=== PATIENT | male | born 1975 | race African-American/Black ===

== ENCOUNTER 2016-09-05 07:00 | Emergency (ER) | payer OTHER | END 2016-09-05 07:18 | disposition home or self-care (01) | LOC: CED 07:00 | DX: M77.11 Lateral epicondylitis, right elbow (principal); M70.831 Other soft tissue disorders related to use, overuse and pressure, right forearm; Z98.890 Other specified postprocedural states | CPT/HCPCS: 99282 ==

== ENCOUNTER 2016-11-30 12:04 | Emergency (ER) | payer OTHER ==
[~2016-11-30] VITALS: Ht 167.6 cm; Wt 95.2 kg
== END 2016-11-30 14:01 | disposition home or self-care (01) ==
LOC: CED 12:04
DX: I10 Essential (primary) hypertension (principal); N49.2 Inflammatory disorders of scrotum
CPT/HCPCS: 99283